=== PATIENT | female | born 1940 | race American Indian/Alaskan Native ===

== ENCOUNTER 2017-11-13 11:36 | Emergency (ER) | payer OTHER, MEDICARE ==
[2017-11-13 12:06] VITALS: BP 148/93; PULSE 86; RESP 18; TEMP 98.4; O2SAT 100; BMI 23.5
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
== END 2017-11-13 14:40 | disposition home or self-care (01) ==
LOC: MERGE 11:36 → ED 11:36
DX: M54.5 Low back pain (principal); M25.512 Pain in left shoulder; M25.511 Pain in right shoulder